=== PATIENT | female | born 1975 | race Caucasian/White ===

== ENCOUNTER 2022-06-13 11:00 | Observation (INO) | payer OTHER ==
[2022-06-12 13:04] LABS: BASOPHILS % 0.5 % (0.0-1.0); EOSINOPHILS # (AUTO) 0.1 (0.0-0.4); EOSINOPHILS % 2.2 % (0.0-6.0); HEMATOCRIT 41.6 % (34.2-44.1); HEMOGLOBIN 13.1 g/dL (12.0-16.0); LYMPHOCYTES # (AUTO) 1.5 (1.0-3.2); LYMPHOCYTES % 24.5 % (18.0-39.1); MEAN CORPUSCULAR HEMOGLOBIN 27.7 pg (28-32); MEAN CORPUSCULAR HGB CONC 31.5 g/dL (31-35); MEAN CORPUSCULAR VOLUME 87.9 fL (81-99); MONOCYTES # (AUTO) 0.5 (0.2-0.8); MONOCYTES % 7.3 % (4.4-11.3); NEUTROPHILS # (AUTO) 4.1 (2.1-6.9); NEUTROPHILS % 65.2 % (38.7-80.0); PLATELET COUNT 321 x10e3/uL (140-360); RED BLOOD COUNT 4.73 x10e6/uL (3.6-5.1); RED CELL DISTRIBUTION WIDTH 13.5 % (11.7-14.4)
[2022-06-12 13:07] LABS: CLARITY,URINE SL CLOUDY (CLEAR); COLOR,URINE YELLOW (YELLOW)
[2022-06-12 13:08] LABS: KETONES,URINE NEGATIVE (NEGATIVE); LEUKOCYTE ESTERASE ,URINE NEGATIVE (NEGATIVE); NITRITE,URINE NEGATIVE (NEGATIVE); PROTEIN,URINE DIPSTICK NEGATIVE (NEGATIVE); URINE UROBILINOGEN 0.2 mg/dL (0.2 - 1)
[2022-06-12 13:27] LABS: ALANINE AMINOTRANSFERASE 19 IU/L (0-55); ALBUMIN 3.5 g/dL (3.5-5.0); ALBUMIN/GLOBULIN RATIO 0.9 (0.8-2.0); ALKALINE PHOSPHATASE 68 IU/L (40-150); ANION GAP 14.3 mmol/L (8-16); BLOOD UREA NITROGEN 11 mg/dL (7-26); BUN/CREATININE RATIO 15 (6-25); CALCIUM 8.9 mg/dL (8.4-10.2); CARBON DIOXIDE 26 mmol/L (22-29); CHLORIDE 108 mmol/L (98-107); CREATININE, SERUM 0.74 mg/dL (0.57-1.11); GLUCOSE 139 mg/dL (74-118); POTASSIUM 4.3 mmol/L (3.5-5.1); SODIUM 144 mmol/L (136-145)
[~2022-06-13] VITALS: Ht 162.6 cm; Wt 102.1 kg
[~2022-06-13 11:00] MED LIST: LISINOPRIL10 MG PO; METFORMIN HCL500 MG PO
[2022-06-13] MEDS ORDERED: SEVOFLURANE INHAL SOLN 250 ML PEN BTL ONE (13:29)
[2022-06-13] MEDS ORDERED: POVIDONE IODINE 0.05% 0.05 % ML PO ONE (13:29)
[2022-06-13] MEDS ORDERED: ACETAMINOPHEN 1000 MG/100 ML IV ONE (13:29)
[2022-06-13] MEDS ORDERED: ONDANSETRON HCL INJ 2MG/ML 2ML 2 MG/ML VIAL ONE ×2 (13:29→19:11)
[2022-06-13] MEDS ORDERED: PHENYLEPHRINE HCL 1% 10 MG/ML VIAL ONE (13:29)
[2022-06-13] MEDS ORDERED: PROPOFOL IV EMULSION 10 MG/ML 20 ML VIAL ONE (13:29)
[2022-06-13] MEDS ORDERED: ROCURONIUM BROMIDE 10 MG/ML 5ML VIAL IV ONE (13:29)
[2022-06-13] MEDS ORDERED: LIDOCAINE HCL 2% LOCAL INJ 5 ML SDV VIAL INJ ONE (13:29)
[2022-06-13] MEDS ORDERED: DEXAMETHASONE SOD PHOS INJ 4 MG/ML SDV ONE (13:29)
[2022-06-13] MEDS ORDERED: ALBUTEROL SULFATE HFA 8GM INHALATION AEROSOL INH ONE (13:29)
[2022-06-13] MEDS ORDERED: LIDOCAINE HCL 1% LOCAL INJ 20 ML VIAL ONE (15:00)
[2022-06-13] MEDS ORDERED: BUPIVACAINE HCL 0.25% 10ML MPF VIAL INJ ONE (15:00)
[2022-06-13] MEDS ORDERED: FUROSEMIDE INJ 10 MG/ML 4 ML VIAL ONE (17:59)
[2022-06-13] MEDS ORDERED: MEPERIDINE HCL INJ 25 MG/ML VIAL ONE (19:17)
[2022-06-13] MEDS ORDERED: DIPHENHYDRAMINE HCL 25 MG CAP PO PRN (19:30)
[2022-06-13] MEDS ORDERED: BISACODYL 10 MG SUPP PR PRN (19:30)
[2022-06-13] MEDS ORDERED: Morphine 4mg INJECTION 4 MG/ML INJ IM PRN (19:30)
[2022-06-13] MEDS ORDERED: ONDANSETRON HCL INJ 2MG/ML 2ML 2 MG/ML VIAL IV PRN (19:30)
[2022-06-13] MEDS ORDERED: TRAMADOL HCL 50 MG TAB PO PRN (19:30)
[2022-06-13] MEDS ORDERED: ACETAMINOPHEN 325 MG TAB PO PRN (19:30)
[2022-06-13] MEDS ORDERED: INSULIN REGULAR, HUMAN 100 UNIT/1 ML ONE (19:36)
[2022-06-13] MEDS: LACTATED RINGER'S 1,000 ML IV SCH (20:23)
[2022-06-13 20:47] VITALS: BP 152/74
[2022-06-13] MEDS: SIMETHICONE 80 MG CHEW PO SCH (21:13)
[2022-06-13 22:05] VITALS: BP 152/74
[2022-06-13 22:08] VITALS: BP 152/74
[2022-06-13] MEDS: KETOROLAC TROMETHAMINE 30 MG/ML VIAL IV SCH (23:39)
[2022-06-14] VITALS (7 sets, daily range): BP systolic 137–158; BP diastolic 71–82
[2022-06-14] MEDS: LACTATED RINGER'S 1,000 ML IV SCH ×3 (03:14→16:40)
[2022-06-14] MEDS ORDERED: PLAVIX75 MG PO (04:53)
[2022-06-14] MEDS ORDERED: LASIX40 MG PO (04:53)
[2022-06-14] MEDS ORDERED: SPIRONOLACTONE25 MG PO (04:54)
[2022-06-14] MEDS ORDERED: LIPITOR20 MG PO (04:55)
[2022-06-14] MEDS ORDERED: POTASSIUM CHLO20 ME1 PO (04:56)
[2022-06-14 05:10] LABS: BASOPHILS % 0.1 % (0.0-1.0); HEMATOCRIT 33.5 % (34.2-44.1); HEMOGLOBIN 10.7 g/dL (12.0-16.0); LYMPHOCYTES # (AUTO) 0.9 (1.0-3.2); MEAN CORPUSCULAR HEMOGLOBIN 27.6 pg (28-32); MEAN CORPUSCULAR HGB CONC 31.9 g/dL (31-35); MEAN CORPUSCULAR VOLUME 86.6 fL (81-99); MONOCYTES # (AUTO) 0.4 (0.2-0.8); MONOCYTES % 3.6 % (4.4-11.3); NEUTROPHILS # (AUTO) 8.7 (2.1-6.9); NEUTROPHILS % 86.8 % (38.7-80.0); PLATELET COUNT 305 x10e3/uL (140-360); RED BLOOD COUNT 3.87 x10e6/uL (3.6-5.1); RED CELL DISTRIBUTION WIDTH 13.8 % (11.7-14.4)
[2022-06-14 05:27] LABS: ANION GAP 14.2 mmol/L (8-16); CALCIUM 7.9 mg/dL (8.4-10.2); CREATININE, SERUM 0.73 mg/dL (0.57-1.11); POTASSIUM 4.2 mmol/L (3.5-5.1)
[2022-06-14] MEDS: KETOROLAC TROMETHAMINE 30 MG/ML VIAL IV SCH ×3 (05:51→18:00)
[2022-06-14] MEDS: METFORMIN HCL 500 MG TAB PO SCH ×2 (09:45→16:35)
[2022-06-14] MEDS: DOCUSATE SODIUM 100 MG CAP PO SCH ×2 (09:45→16:36)
[2022-06-14] MEDS: SIMETHICONE 80 MG CHEW PO SCH ×4 (09:45→20:46)
[2022-06-14] MEDS: LISINOPRIL 20 MG TAB PO SCH ×2 (09:45→16:36)
[2022-06-14] MEDS: INSULIN REGULAR, HUMAN 100 UNIT/1 ML SQ SCH ×2 (11:30→16:42)
[2022-06-14] MEDS: METRONIDAZOLE 500 MG TAB PO SCH ×2 (13:18→21:01)
[2022-06-14] MEDS ORDERED: IBUPROFEN600 MG PO (21:25)
[2022-06-14] MEDS ORDERED: METRONIDAZOLE500 MG PO (21:25)
== END 2022-06-14 21:47 | disposition home or self-care (01) ==
LOC: OR 11:00 → INTOOBSV 16:03 → PACU V 16:03 → MED/SURG 19:47
PROVIDERS: ADMIT Obstetrics & Gynecology; ATTEND Obstetrics & Gynecology
DX: N80.0 Endometriosis of uterus (principal); N92.1 Excessive and frequent menstruation with irregular cycle; N80.1 Endometriosis of ovary; N72 Inflammatory disease of cervix uteri; Z20.822 Contact with and (suspected) exposure to COVID-19; N70.11 Chronic salpingitis; Z01.818 Encounter for other preprocedural examination; N73.6 Female pelvic peritoneal adhesions (postinfective)
CPT/HCPCS: 0223U; 36415 ×3; 58571; 58660; 71046; 80048; 80053; 81003; 82948 ×2; 83036; 84702; 85025 ×2; 86850; 86900; 88307; 93005; 94799 ×2; G0378 ×2; J0131; J0690 ×2; J1100; J1817; J1885 ×2; J1940; J2001; J2175; J2370; J2405; J2704; J7050 ×2; J7121 ×2